=== PATIENT | female | born 1985 | race African-American/Black ===

== ENCOUNTER 2020-02-19 12:40 | Inpatient (IN) | payer MEDICAID ==
[~2020-02-19] VITALS: Ht 162.6 cm; Wt 71.4 kg
[2020-02-19 15:31] LABS: AMPHET/METH SCREEN,URINE NEGATIVE (NEGATIVE); BARBITURATE SCREEN, URINE NEGATIVE (NEGATIVE); BENZODIAZEPINES SCREEN,URINE NEGATIVE (NEGATIVE); CANNABINOID SCREEN,URINE NEGATIVE (NEGATIVE); COCAINE SCREEN,URINE NEGATIVE (NEGATIVE); METHADONE SCREEN, URINE NEGATIVE (NEGATIVE); OPIATE SCREEN,URINE NEGATIVE (NEGATIVE)
[2020-02-19 15:34] LABS: PHENCYCLIDINE SCREEN,URINE NEGATIVE (NEGATIVE)
[2020-02-19 15:35] LABS: BASOPHILS % (AUTO) 0.5 % (0.0-2.0); EOSINOPHILS % (AUTO) 0 % (1.0-6.0); HEMATOCRIT 35.8 % (36-46); HEMOGLOBIN 12.2 g/dL (12.0-16.0); LYMPHOCYTES # (AUTO) 2.1 K/uL (1.0-4.8); LYMPHOCYTES % (AUTO) 17.7 % (22.0-44.0); MEAN CORPUSCULAR HEMOGLOBIN 31.9 pg (26.0-34.0); MEAN CORPUSCULAR HGB CONC 34.2 G/dL (31.0-37.0); MEAN CORPUSCULAR VOLUME 93 fL (80-100); MONOCYTES # (AUTO) 0.8 K/uL (0.1-1.0); MONOCYTES % (AUTO) 6.7 % (2.0-9.0); NEUTROPHILS # (AUTO) 8.8 K/uL (1.8-7.7); NEUTROPHILS % (AUTO) 75.1 % (40.0-70.0); PLATELET COUNT (AUTO) 373 K/uL (150-450); RED BLOOD CELL COUNT(AUTO) 3.83 MIL/uL (4.00-5.20); RED CELL DISTRIBUTION WIDTH 13.6 % (11.5-14.5)
[2020-02-19 15:39] LABS: ANION GAP 20 mmol/L (8-16); CALCIUM, TOTAL 9.8 mg/dL (8.8-10.5); CARBON DIOXIDE 20 mmol/L (22-29); CHLORIDE 98 mmol/L (98-107); GLOMERULAR FILTR. RATE CALC > 60 mL/min (>60); GLUCOSE,RANDOM 89 mg/dL (70-110); POTASSIUM 3.7 mmol/L (3.5-5.1); SODIUM SERUM 138 mmol/L (136-145); UREA NITROGEN, BLOOD 7 mg/dL (7-18)
[2020-02-19 15:50] LABS: ALANINE AMINOTRANSFERASE 33 U/L (12-78); ALBUMIN 4.2 g/dL (3.4-5.0); ALKALINE PHOSPHATASE 79 U/L (46-116); ASPARTATE AMINOTRANSFERASE 92 U/L (15-37); BILIRUBIN,TOTAL 0.7 mg/dL (0.1-1.0); HCG,QUANTITATIVE < 1 mIU/mL (0-6); TOTAL PROTEIN, SERUM 7.6 g/dL (6.4-8.2)
[2020-02-19 17:28] LABS: COVID AG,FIA SOURCE NASOPHARYNGEAL
[2020-02-19] MEDS ORDERED: QUEtiapine FUMARATE 100 MG TABLET PO PRN (18:45)
[2020-02-19] MEDS ORDERED: ZOLPIDEM TARTRATE 10 MG TABLET PO PRN (18:45)
[2020-02-19] MEDS: LORazepam 2 MG TABLET PO PRN (19:33)
[2020-02-19 21:32] VITALS: BP 139/67
[2020-02-19] MEDS ORDERED: INFLUENZA VIRUS VACCINE QVS 2020-21 (6MO+)/PF 60 MCG/0.5 ML SYRINGE IM ONE (22:15)
[2020-02-20 07:14] LABS: CHOL/HDL RATIO 3.5 (3.9-5.7)
[2020-02-20 08:00] VITALS: BP 160/88
[2020-02-20] MEDS: ESCITALOPRAM OXALATE 10 MG TABLET PO SCH (09:00)
[2020-02-20] MEDS: ARIPiprazole 10 MG TABLET PO SCH (09:00)
[2020-02-20] MEDS ORDERED: ONDANSETRON HCL 4 MG TABLET PO PRN (10:00)
[2020-02-20] MEDS ORDERED: NICOTINE 14 MG/24 HOUR PATCH TD PRN (10:00)
[2020-02-20] MEDS ORDERED: CloNIDine HCL 0.1 MG TABLET PO PRN (10:00)
[2020-02-20] MEDS ORDERED: MAG HYDROX/AL HYDROX/SIMETH ES 30 ML SUSPENSION UDCUP PO PRN (10:00)
[2020-02-20] MEDS ORDERED: ACETAMINOPHEN 325 MG TABLET PO PRN (10:00)
[2020-02-20] MEDS ORDERED: ALBUTEROL SULFATE HFA 90 MCG/PUFF 8 GM INHALER IH PRN (10:00)
[2020-02-20] MEDS ORDERED: PETROLATUM,WHITE 28 GM JELLY TP PRN (10:00)
[2020-02-20] MEDS ORDERED: GuaiFENesin/D-METHORPHAN [SUGAR-FREE] 200-20MG/10 ML SYRUP UDCUP PO PRN (10:00)
[2020-02-20] MEDS ORDERED: IBUPROFEN 400 MG TABLET PO PRN (10:00)
[2020-02-20] MEDS ORDERED: LOPERAMIDE HCL 2 MG CAPSULE PO PRN (10:00)
[2020-02-20] MEDS ORDERED: DOCUSATE SODIUM 100 MG CAPSULE PO PRN (10:00)
[2020-02-20 16:34] VITALS: BP 137/90
[2020-02-21 08:00] VITALS: BP 131/88
[2020-02-21] MEDS: ESCITALOPRAM OXALATE 10 MG TABLET PO SCH ×2 (09:00→14:01)
[2020-02-21] MEDS: ARIPiprazole 10 MG TABLET PO SCH ×2 (09:00→14:01)
[2020-02-21 16:54] VITALS: BP 155/97
[2020-02-21] MEDS: LORazepam 2 MG TABLET PO PRN (22:06)
[2020-02-22 08:00] VITALS: BP 124/67
[2020-02-22] MEDS: ARIPiprazole 10 MG TABLET PO SCH ×3 (08:23→09:02)
[2020-02-22] MEDS: ESCITALOPRAM OXALATE 10 MG TABLET PO SCH ×3 (08:23→09:03)
[2020-02-22 17:30] VITALS: BP 95/57
[2020-02-23 08:06] VITALS: BP 145/83
[2020-02-23] MEDS: ARIPiprazole 10 MG TABLET PO SCH (09:02)
[2020-02-23] MEDS: ESCITALOPRAM OXALATE 10 MG TABLET PO SCH (09:04)
[2020-02-23 16:00] VITALS: BP 143/93
[2020-02-23 19:34] LABS: APPEARANCE,URINE CLOUDY (CLEAR); GLUCOSE, URINE (UA) NEGATIVE (NEGATIVE); KETONES,URINE 40 mg/dL (NEGATIVE); LEUKOCYTE ESTERASE ,URINE NEGATIVE (NEGATIVE); NITRATE,URINE NEGATIVE (NEGATIVE); OCCULT BLOOD,URINE SMALL (NEGATIVE); PROTEIN,URINE TRACE (NEGATIVE); UROBILINOGEN,URINE 0.2 mg/dL (<=1.0)
[2020-02-23 19:36] LABS: BILIRUBIN,URINE PRELIM. POSITIVE (NEGATIVE)
[2020-02-23 19:55] LABS: BACTERIA,URINE Few /HPF (None Seen); RBC,URINE 0-2 /HPF (0-2); WBC,URINE 0-2 /HPF (0-5)
[2020-02-23 19:56] LABS: SQUAMOUS EPITHELIAL CELL,UR Few /LPF (None Seen)
[2020-02-24 08:00] VITALS: BP 160/88
[2020-02-24] MEDS: ARIPiprazole 10 MG TABLET PO SCH (09:33)
[2020-02-24] MEDS: ESCITALOPRAM OXALATE 10 MG TABLET PO SCH (09:33)
[2020-02-24 16:37] VITALS: BP 129/85
[2020-02-25 06:32] LABS: BASOPHILS % (AUTO) 0.5 % (0.0-2.0); EOSINOPHILS % (AUTO) 2.5 % (1.0-6.0); HEMATOCRIT 34.7 % (36-46); LYMPHOCYTES % (AUTO) 29.8 % (22.0-44.0); MEAN CORPUSCULAR HEMOGLOBIN 32.2 pg (26.0-34.0); MEAN CORPUSCULAR HGB CONC 34.7 G/dL (31.0-37.0); MEAN CORPUSCULAR VOLUME 93 fL (80-100); MONOCYTES # (AUTO) 0.7 K/uL (0.1-1.0); MONOCYTES % (AUTO) 10.4 % (2.0-9.0); NEUTROPHILS # (AUTO) 3.8 K/uL (1.8-7.7); NEUTROPHILS % (AUTO) 56.8 % (40.0-70.0); PLATELET COUNT (AUTO) 299 K/uL (150-450); RED BLOOD CELL COUNT(AUTO) 3.74 MIL/uL (4.00-5.20); RED CELL DISTRIBUTION WIDTH 13.3 % (11.5-14.5)
[2020-02-25 08:00] VITALS: BP 139/89
[2020-02-25] MEDS: ESCITALOPRAM OXALATE 10 MG TABLET PO SCH (08:26)
[2020-02-25] MEDS: ARIPiprazole 10 MG TABLET PO SCH (08:26)
[2020-02-25 16:21] VITALS: BP 123/80
[2020-02-25] MEDS: SIMVASTATIN 10 MG TABLET PO SCH (20:40)
[2020-02-26 08:14] VITALS: BP 129/80
[2020-02-26] MEDS: ARIPiprazole 15 MG TABLET PO SCH (08:28)
[2020-02-26] MEDS: ESCITALOPRAM OXALATE 10 MG TABLET PO SCH (08:28)
[2020-02-26 16:37] VITALS: BP 125/84
[2020-02-26] MEDS: SIMVASTATIN 10 MG TABLET PO SCH (20:45)
[2020-02-27 08:41] VITALS: BP 121/85
[2020-02-27] MEDS: ARIPiprazole 15 MG TABLET PO SCH (08:41)
[2020-02-27] MEDS: ESCITALOPRAM OXALATE 10 MG TABLET PO SCH (08:45)
[2020-02-27 16:20] VITALS: BP_SYST 130; BP_SYST 137; BP_DIAS 85; BP_DIAS 87
[2020-02-27] MEDS: SIMVASTATIN 10 MG TABLET PO SCH (20:25)
[2020-02-28] MEDS: ESCITALOPRAM OXALATE 10 MG TABLET PO SCH (07:40)
[2020-02-28] MEDS: ARIPiprazole 15 MG TABLET PO SCH (07:40)
[2020-02-28 08:04] VITALS: BP 146/93
[2020-02-28 16:47] VITALS: BP 129/91
[2020-02-28] MEDS: MAGNESIUM HYDROXIDE SUSPENSION 30 ML UDCUP PO PRN (20:23)
[2020-02-28] MEDS: SIMVASTATIN 10 MG TABLET PO SCH (20:27)
[2020-02-29 08:00] VITALS: BP 117/72
[2020-02-29] MEDS: ARIPiprazole 15 MG TABLET PO SCH (08:23)
[2020-02-29] MEDS: ESCITALOPRAM OXALATE 10 MG TABLET PO SCH (08:23)
[2020-02-29 18:15] VITALS: BP 121/75
[2020-02-29] MEDS: SIMVASTATIN 10 MG TABLET PO SCH (20:21)
[2020-03-01 08:00] VITALS: BP 121/62
[2020-03-01] MEDS: ARIPiprazole 15 MG TABLET PO SCH (08:05)
[2020-03-01] MEDS: ESCITALOPRAM OXALATE 10 MG TABLET PO SCH (08:06)
[2020-03-01 16:17] VITALS: BP 117/79
[2020-03-01] MEDS: SIMVASTATIN 10 MG TABLET PO SCH (20:44)
[2020-03-02 08:00] VITALS: BP 123/76
[2020-03-02] MEDS: ARIPiprazole 15 MG TABLET PO SCH (08:21)
[2020-03-02] MEDS: ESCITALOPRAM OXALATE 10 MG TABLET PO SCH (08:21)
[2020-03-02 16:00] VITALS: BP 127/79
[2020-03-02] MEDS: SIMVASTATIN 10 MG TABLET PO SCH (20:12)
[2020-03-03] MEDS: MULTIVITAMINS WITH MINERALS, THERAPEUTIC TABLET PO SCH (08:24)
[2020-03-03] MEDS: ESCITALOPRAM OXALATE 10 MG TABLET PO SCH (08:24)
[2020-03-03] MEDS: ARIPiprazole 15 MG TABLET PO SCH (08:24)
[2020-03-03 08:50] VITALS: BP 121/71
[2020-03-03 16:13] VITALS: BP 120/68
[2020-03-03] MEDS: MAGNESIUM HYDROXIDE SUSPENSION 30 ML UDCUP PO PRN (19:27)
[2020-03-03] MEDS: SIMVASTATIN 10 MG TABLET PO SCH (20:13)
[2020-03-04] MEDS: ARIPiprazole 15 MG TABLET PO SCH (08:32)
[2020-03-04] MEDS: ESCITALOPRAM OXALATE 10 MG TABLET PO SCH (08:32)
[2020-03-04] MEDS: MULTIVITAMINS WITH MINERALS, THERAPEUTIC TABLET PO SCH (08:38)
[2020-03-04 09:16] VITALS: BP 103/68
[2020-03-04 16:03] VITALS: BP 111/73
[2020-03-04] MEDS: SIMVASTATIN 10 MG TABLET PO SCH (20:16)
[2020-03-05] MEDS: ESCITALOPRAM OXALATE 10 MG TABLET PO SCH (08:57)
[2020-03-05] MEDS: ARIPiprazole 15 MG TABLET PO SCH (08:57)
[2020-03-05] MEDS: MULTIVITAMINS WITH MINERALS, THERAPEUTIC TABLET PO SCH (08:58)
[2020-03-05 10:05] VITALS: BP 111/72
[2020-03-05 16:31] VITALS: BP 115/80
[2020-03-05] MEDS: SIMVASTATIN 10 MG TABLET PO SCH (20:17)
[2020-03-06] MEDS: ARIPiprazole 15 MG TABLET PO SCH (08:08)
[2020-03-06] MEDS: MULTIVITAMINS WITH MINERALS, THERAPEUTIC TABLET PO SCH (08:08)
[2020-03-06] MEDS: ESCITALOPRAM OXALATE 10 MG TABLET PO SCH (08:08)
[2020-03-06 08:33] VITALS: BP 124/71
[2020-03-06 16:24] VITALS: BP 109/70
[2020-03-06] MEDS: SIMVASTATIN 10 MG TABLET PO SCH (20:13)
[2020-03-07 01:06] VITALS: BP 107/61
[2020-03-07 08:00] VITALS: BP 141/78
[2020-03-07] MEDS: MULTIVITAMINS WITH MINERALS, THERAPEUTIC TABLET PO SCH (08:50)
[2020-03-07] MEDS: ARIPiprazole 15 MG TABLET PO SCH (08:50)
[2020-03-07] MEDS: ESCITALOPRAM OXALATE 10 MG TABLET PO SCH (08:51)
[2020-03-07] MEDS ORDERED: ARIP15TA2 PO (10:41)
[2020-03-07] MEDS ORDERED: ESCI-8 PO (10:42)
[2020-03-07] MEDS ORDERED: SIMV-259 PO (10:42)
[2020-03-07] MEDS ORDERED: MULT-1239 PO (10:43)
== END 2020-03-07 15:00 | disposition home or self-care (01) | DRG 751 ==
LOC: EMS 12:44 → 3EC 18:41 → UNDOADMIN 18:41 → 3EC 20:54
DX: F33.3 Major depressive disorder, recurrent, severe with psychotic symptoms (principal); Z91.5 Personal history of self-harm; F12.90 Cannabis use, unspecified, uncomplicated; F19.10 Other psychoactive substance abuse, uncomplicated; E78.5 Hyperlipidemia, unspecified; D72.829 Elevated white blood cell count, unspecified; R45.851 Suicidal ideations; K30 Functional dyspepsia; Z79.899 Other long term (current) drug therapy; S82.892A Other fracture of left lower leg, initial encounter for closed fracture; W18.39XA Other fall on same level, initial encounter; Y93.89 Activity, other specified; Y92.89 Other specified places as the place of occurrence of the external cause; Y99.8 Other external cause status; Z20.828 Contact with and (suspected) exposure to other viral communicable diseases; Z28.21 Immunization not carried out because of patient refusal
CPT/HCPCS: 87426; G0480